=== PATIENT | male | born 1965 | race Caucasian/White ===

== ENCOUNTER 2018-11-19 12:56 | Emergency (ER) | payer SELFPAY ==
[~2018-11-19] VITALS: Ht 167.6 cm; Wt 106.6 kg
[~2018-11-19 12:56] MED LIST: ASPI81CH PO; ATEN25 PO; Amoxicillin875 MG PO; DILT300 PO; FAMO20 PO; IBUP800; Lovastatin10 MG PO; NAPR375 PO; NEOPOLHCSU RIGHTEAR; SERT100 PO; ZOLP10 PO
== END 2018-11-19 13:17 | disposition home or self-care (01) ==
LOC: ER 12:56
DX: S40.262A Insect bite (nonvenomous) of left shoulder, initial encounter (principal); S40.862A Insect bite (nonvenomous) of left upper arm, initial encounter; W57.XXXA Bitten or stung by nonvenomous insect and other nonvenomous arthropods, initial encounter; Z79.899 Other long term (current) drug therapy; Z79.82 Long term (current) use of aspirin; I10 Essential (primary) hypertension; F17.200 Nicotine dependence, unspecified, uncomplicated

== ENCOUNTER 2020-12-22 13:35 | Day surgery (SDC) | payer OTHER ==
[~2020-12-22] VITALS: Ht 167.6 cm; Wt 106.4 kg
[~2020-12-22 13:35] MED LIST changes: +AMLO5; +ATEN25; +AVALIDE 300-121 EACH; +QUET25; +ZOLP10
[2020-12-22] MEDS ORDERED: SERT100 (13:52)
== END 2020-12-22 15:18 | disposition home or self-care (01) ==
LOC: ORSCSDS 13:35
PROVIDERS: Internal Medicine Gastroenterology
PROC: 0DBK8ZX Excision of Ascending Colon, Via Natural or Artificial Opening Endoscopic, Diagnostic (ICD-10-PCS; principal; 2020-12-22 15:00)
PROC: 0DBN8ZX Excision of Sigmoid Colon, Via Natural or Artificial Opening Endoscopic, Diagnostic (ICD-10-PCS; principal; 2020-12-22 15:00)
DX: Z12.11 Encounter for screening for malignant neoplasm of colon (principal); D12.2 Benign neoplasm of ascending colon; D12.5 Benign neoplasm of sigmoid colon; K57.30 Diverticulosis of large intestine without perforation or abscess without bleeding; Z86.010 Personal history of colon polyps; F17.210 Nicotine dependence, cigarettes, uncomplicated
CPT/HCPCS: 88305; J2704; J7120